=== PATIENT | male | born 1990 | race Caucasian/White ===

== ENCOUNTER 2020-08-25 10:19 | Outpatient (REF) | payer OTHER, SELFPAY ==
[2020-08-25 11:24] LABS: MANUAL DIFF FLAG NO
[2020-08-25 11:40] LABS: Basophils Percent Auto 0.5 % (0-2); Eosinophils Percent Auto 0.5 % (0-4); Hemoglobin 18.5 g/dl (14.0-18.0); Imm Gran Abs Auto 0.03 X10*3/uL (0.00-0.03); Imm Gran Pct Auto 0.4 % (0.0-0.4); Lymphocytes Percent Auto 25.1 % (20-40); Mean Corpuscular HGB Conc 34.9 g/dl (31.0-36.0); Mean Corpuscular Hemoglobin 30.5 pg (27.0-33.0); Mean Corpuscular Volume 87.3 fL (80-98); Mean Platelet Volume 11.3 fL (9.4-12.4); Monocytes Absolute Auto 0.5 X10*3/uL (0.1-1.2); Monocytes Percent Auto 6.3 % (2-11); Neutrophils Absolute Auto 5.2 X10*3/uL (2.0-8.3); Neutrophils Percent Auto 67.2 % (45-73); Platelet Count 212 X10*3/uL (160-400); Red Blood Count 6.07 X10*6/uL (4.60-5.80); Red Cell Distribution Width 11.7 % (11.0-16.0); White Blood Count 7.8 X10*3/uL (4.8-10.8)
[2020-08-25 12:00] LABS: Alanine Aminotransferase 27 U/L (0-40); Albumin Level 4.8 g/dL (3.5-5.0); Alkaline Phosphatase 47 U/L (39-117); Anion Gap 15 (12-20); Aspartate Amino Transferase 20 U/L (5-37); Bilirubin Total 1.1 mg/dL (0.0-1.0); Blood Urea Nitrogen 15 mg/dL (9-16); Calcium 9.8 mg/dL (8.4-10.2); Carbon Dioxide 25 mmol/L (22-29); Chloride 104 mmol/L (96-108); Cholesterol 252 mg/dL; Estimated Glomerular Filt Rate > 60; Glucose Fasting 81 mg/dL (60-99); HDL Cholesterol 47 mg/dL; LDL Cholesterol Calculated 178 mg/dl; Potassium 4.3 mmol/L (3.3-5.1); Sodium 140 mmol/L (135-145); Total Protein 8.1 g/dL (6.5-8.0); Triglycerides 136 mg/dL
[2020-08-25 12:43] LABS: Vitamin B12 413 pg/mL (200-900)
[2020-08-29 15:12] LABS: Vitamin D 25-OH, D2 <4 ng/mL; Vitamin D 25-OH, D3 18 ng/mL; Vitamin D 25-OH, Total 18 ng/mL (30-100)
== END 2020-08-25 10:20 | disposition home or self-care (01) ==
LOC: HO.HMGCLDS 10:19
PROVIDERS: PCP Internal Medicine; Visit Provider Internal Medicine
DX: Z00.01 Encounter for general adult medical examination with abnormal findings (principal); R41.3 Other amnesia; K21.9 Gastro-esophageal reflux disease without esophagitis; H54.3 Unqualified visual loss, both eyes; Z87.820 Personal history of traumatic brain injury; Z91.09 Other allergy status, other than to drugs and biological substances
CPT/HCPCS: 36415; 80053; 80061; 82306; 82607; 84443; 85025

== ENCOUNTER 2020-08-28 09:41 | Outpatient (REF) | payer OTHER, SELFPAY ==
[2020-08-28 11:40] LABS: MANUAL DIFF FLAG NO
[2020-08-28 11:48] LABS: Basophils Absolute Auto 0.1 X10*3/uL (0.0-0.2); Basophils Percent Auto 0.8 % (0-2); Eosinophils Absolute Auto 0.1 X10*3/uL (0.0-0.4); Eosinophils Percent Auto 0.9 % (0-4); Hematocrit 53.1 % (42-52); Hemoglobin 18.1 g/dl (14.0-18.0); Imm Gran Abs Auto 0.03 X10*3/uL (0.00-0.03); Imm Gran Pct Auto 0.5 % (0.0-0.4); Lymphocytes Absolute Auto 2.1 X10*3/uL (1.2-4.9); Lymphocytes Percent Auto 31.7 % (20-40); Mean Corpuscular HGB Conc 34.1 g/dl (31.0-36.0); Mean Corpuscular Hemoglobin 30.3 pg (27.0-33.0); Mean Corpuscular Volume 88.9 fL (80-98); Monocytes Absolute Auto 0.5 X10*3/uL (0.1-1.2); Monocytes Percent Auto 7.8 % (2-11); Neutrophils Absolute Auto 3.8 X10*3/uL (2.0-8.3); Neutrophils Percent Auto 58.3 % (45-73); Platelet Count 248 X10*3/uL (160-400); Red Blood Count 5.97 X10*6/uL (4.60-5.80); Red Cell Distribution Width 11.8 % (11.0-16.0); White Blood Count 6.5 X10*3/uL (4.8-10.8)
[2020-08-28 12:26] LABS: Ferritin 136 ng/mL (20-250)
== END 2020-08-28 09:42 | disposition home or self-care (01) ==
LOC: HO.HMGCLDS 09:41
PROVIDERS: Visit Provider Internal Medicine
DX: R79.89 Other specified abnormal findings of blood chemistry (principal); D58.2 Other hemoglobinopathies; R71.8 Other abnormality of red blood cells
CPT/HCPCS: 36415; 82728; 85025

== ENCOUNTER 2021-08-19 08:53 | Outpatient (REF) | payer OTHER, SELFPAY ==
[2021-08-19 11:23] LABS: MANUAL DIFF FLAG NO
[2021-08-19 11:41] LABS: Basophils Percent Auto 0.5 % (0-2); Eosinophils Percent Auto 0.7 % (0-4); Hematocrit 49.2 % (42.0-52.0); Hemoglobin 16.8 g/dl (14.0-18.0); Imm Gran Abs Auto 0.02 X10*3/uL (0.00-0.03); Imm Gran Pct Auto 0.4 % (0.0-0.4); Lymphocytes Absolute Auto 1.8 X10*3/uL (1.2-4.9); Lymphocytes Percent Auto 31.4 % (20-40); Mean Corpuscular HGB Conc 34.1 g/dl (31.0-36.0); Mean Corpuscular Hemoglobin 30.6 pg (27.0-33.0); Mean Corpuscular Volume 89.6 fL (80.0-98.0); Mean Platelet Volume 11.2 fL (9.4-12.4); Monocytes Absolute Auto 0.4 X10*3/uL (0.1-1.2); Monocytes Percent Auto 7.5 % (2-11); Neutrophils Absolute Auto 3.3 x10*3/uL (2.0-8.3); Neutrophils Percent Auto 59.5 % (45-73); Platelet Count 197 X10*3/uL (160-400); Red Blood Count 5.49 X10*6/uL (4.60-5.80); Red Cell Distribution Width 11.9 % (11.0-16.0); White Blood Count 5.6 X10*3/uL (4.8-10.8)
[2021-08-19 12:20] LABS: Ferritin 132 ng/mL (20-250); TSH reflex Free T4 0.99 uIU/mL (0.32-4.0)
[2021-08-19 12:21] LABS: Alanine Aminotransferase 22 U/L (0-40); Albumin Level 4.7 g/dL (3.5-5.0); Alkaline Phosphatase 39 U/L (39-117); Anion Gap 11 (12-20); Aspartate Amino Transferase 18 U/L (5-37); Blood Urea Nitrogen 11 mg/dL (9-16); Calcium 10.2 mg/dL (8.4-10.2); Carbon Dioxide 30 mmol/L (22-29); Chloride 103 mmol/L (96-108); Cholesterol 258 mg/dL; Estimated Glomerular Filt Rate > 60; Glucose Fasting 90 mg/dL (60-99); HDL Cholesterol 52 mg/dL; LDL Cholesterol Calculated 182 mg/dl; Potassium 4.9 mmol/L (3.3-5.1); Sodium 139 mmol/L (135-145); Total Protein 7.8 g/dL (6.5-8.0); Triglycerides 122 mg/dL
== END 2021-08-19 08:54 | disposition home or self-care (01) ==
LOC: HO.HMGCLDS 08:53
PROVIDERS: Visit Provider Internal Medicine
DX: Z00.01 Encounter for general adult medical examination with abnormal findings (principal); D58.2 Other hemoglobinopathies; H54.3 Unqualified visual loss, both eyes; K21.9 Gastro-esophageal reflux disease without esophagitis; R41.3 Other amnesia; R79.89 Other specified abnormal findings of blood chemistry; Z91.09 Other allergy status, other than to drugs and biological substances; Z87.820 Personal history of traumatic brain injury
CPT/HCPCS: 36415; 80053; 80061; 82728; 84443; 85025

== ENCOUNTER 2021-11-30 12:23 | Outpatient (REF) | payer OTHER, SELFPAY ==
[2021-11-30 14:15] LABS: Alanine Aminotransferase 43 U/L (0-40); Albumin Level 4.8 g/dL (3.5-5.0); Alkaline Phosphatase 39 U/L (39-117); Aspartate Amino Transferase 26 U/L (5-37); Bilirubin Direct 0.3 mg/dL (0.0-0.5); Bilirubin Total 0.6 mg/dL (0.0-1.0); Cholesterol 152 mg/dL; HDL Cholesterol 59 mg/dL; LDL Cholesterol Calculated 77 mg/dl; Total Protein 7.6 g/dL (6.5-8.0); Triglycerides 83 mg/dL
== END 2021-11-30 12:24 | disposition home or self-care (01) ==
LOC: HO.HMGCLDS 12:23
PROVIDERS: Visit Provider Internal Medicine
DX: E78.9 Disorder of lipoprotein metabolism, unspecified (principal)
CPT/HCPCS: 36415; 80061; 80076

== ENCOUNTER 2022-02-17 15:18 | Outpatient (REF) | payer OTHER, SELFPAY ==
[2022-02-17 16:47] LABS: Alanine Aminotransferase 40 U/L (0-40); Albumin Level 4.7 g/dL (3.5-5.0); Alkaline Phosphatase 41 U/L (39-117); Aspartate Amino Transferase 24 U/L (5-37); Bilirubin Direct 0.3 mg/dL (0.0-0.5); Bilirubin Total 0.7 mg/dL (0.0-1.0); Total Protein 7.4 g/dL (6.5-8.0)
== END 2022-02-17 15:19 | disposition home or self-care (01) ==
LOC: HO.HMGCLDS 15:18
PROVIDERS: PCP Internal Medicine; Visit Provider Internal Medicine
DX: E78.9 Disorder of lipoprotein metabolism, unspecified (principal)
CPT/HCPCS: 36415; 80076

== ENCOUNTER 2022-04-20 12:03 | Emergency (ER) | payer OTHER, SELFPAY ==
--- NOTE | ~2022-04-20 | CT_ITS ---
EXAMINATION: CT HEAD WITHOUT CONTRAST CT CERVICAL SPINE WITHOUT CONTRAST CLINICAL INFORMATION: Pain at left forehead. Status post fall. COMPARISON: None. TECHNIQUE: Contiguous axial imaging was performed from the skullbase to vertex without intravenous administration of contrast. Multidetector helical imaging was performed through the cervical spine. This CT examination was performed using dose optimization techniques as appropriate, variously including the following: *Automated exposure control *Adjustment of mA and/or kV according to patient size (this includes techniques or standardized protocols for targeted exams where dose is matched to indication/reason for exam; i.e. extremities or head) *Use of iterative reconstruction technique DLP: 927.5 mGy-cm. FINDINGS: HEAD: The posterior body and splenium of the corpus callosum are attenuated with ex vacuo dilatation and colpocephaly of the occipital horns and trigones of the lateral ventricles bilaterally. Mild prominence of the temporal horns and third ventricle also evident. Significant parenchymal volume loss evident in the occipital lobes as well. There are chronic right-sided cranioplasty changes noted. The patient has also had a previous suboccipital craniectomy with resection of the posterior arch of C1. There is no evidence of acute intracranial hemorrhage or territorial infarction. No abnormal mass effect or midline shift is seen. No extra-axial fluid collections are identified. Suspected small chronic lacunar infarct in the ventral right thalamus. The soft tissues are normal. The mastoid air cells and visualized portions of the paranasal sinuses are fairly well aerated. CERVICAL SPINE: No acute fracture or subluxation is identified in the cervical spine. There is a slight reversal of the normal cervical lordosis. Mild disc space narrowing evident at the C3-C4 and at the C4-C5 levels with a small central disc protrusion at C4-C5. The atlantoaxial articulation is normally maintained. The paraspinal soft tissues are normal. The lung apices are clear. CT/CT cervical spine wo IV con IMPRESSION: 1. No acute intracranial hemorrhage or territorial infarction. Chronic right-sided cranioplasty changes. Colpocephaly of the lateral ventricles with volume loss in the parietal-occipital lobes. Mild ex vacuo dilatation of the ventricles. Suspected small chronic lacunar infarct in the right thalamus. 2. No evidence of acute cervical spine traumatic injury. Chronic postoperative changes and mild mid cervical spondylosis.
--- NOTE | ~2022-04-20 | CT_ITS ---
EXAMINATION: CT CHEST WITHOUT CONTRAST CLINICAL INFORMATION: Left posterior chest pain after fall COMPARISON: Previous chest x-ray July 2019 TECHNIQUE: Multidetector volumetric CT imaging of the chest was done. Axial MIP volume rendering provided. Sagittal and coronal reformatted images were obtained. This CT examination was performed using dose optimization techniques as appropriate, variously including the following: *Automated exposure control *Adjustment of mA and/or kV according to patient size (this includes techniques or standardized protocols for targeted exams where dose is matched to indication/reason for exam; i.e. extremities or head) *Use of iterative reconstruction technique DLP: 529 mGy-cm FINDINGS: BOOK SHELVER: Unremarkable LUNGS: The lungs are clear with no evidence of inflammation or nodules. MEDIASTINUM: The mediastinum is normal. CORONARY ARTERY CALCIFICATION: None visualized on this study. PLEURA: There is no pleural effusion. No pleural mass or thickening. No pneumothorax. AXILLA: Shotty bilateral axillary lymphadenopathy, left greater than right. UPPER ABDOMEN: Unremarkable. OSSEOUS STRUCTURES: Unremarkable. No fracture. CT/CT chest wo IV con IMPRESSION: Unremarkable examination. Fleischner guidelines were followed.
--- NOTE | ~2022-04-20 | XR_ITS ---
EXAMINATION: XR KNEE, LEFT CLINICAL INFORMATION: Left knee COMPARISON: None TECHNIQUE: Four views of the left knee. FINDINGS: No joint effusion, fracture, dislocation, or destructive process. XR/XR knee LT 4V IMPRESSION: Unremarkable study.
--- NOTE | 2022-04-20 12:19 | ED_ITS ---
HPI - General Adult General Chief complaint: Fall <Araceli Moreno MD - Last Filed: 04/20/22 12:29> Stated complaint: Fall T-1/Hit head/Previous TBI/Vomiting <Araceli Moreno MD - Last Filed: 04/20/22 12:29> Time Seen by Provider: 04/20/22 18:16 <Araceli Moreno MD - Last Filed: 04/20/22 12:29> Source: patient and family <NAE Sanchez - Last Filed: 04/20/22 18:42> Mode of arrival: ambulatory <NAE Sanchez - Last Filed: 04/20/22 18:42> History of Present Illness HPI narrative: 31-year-old male with past medical history of GERD, blindness, TBI, CVAs, presenting to the ED c/o mild headache, left elbow, left shoulder and left knee pain, and nausea with 3 episodes of emesis Tuesday night s/p mechanical trip and fall down 13 stairs on Tuesday night. Denies sx prior to fall. Reports unknown LOC, patient states due to his blindness unclear if passed out however does remember brother shaking him. Denies CP/SOB, neck/back pain, abdominal pain, diarrhea, numbness, tingling, weakness, incontinence/retention. Denies taking anticoagulation <NAE Sanchez - Last Filed: 04/20/22 18:42> Onset (ago): day(s) <NAE Sanchez - Last Filed: 04/20/22 18:42> Related Data Home medications: Previous Rx's Medication Instructions Recorded fluticasone propionate 50 1 spray intranasal BID #32 mL 09/25/21 mcg/actuation nasal spray,suspension memantine 5 mg tablet 5 mg PO DAILY 90 days #90 tabs 09/25/21 rosuvastatin 20 mg tablet (Crestor) 20 mg PO DAILY 90 days #90 tabs 10/06/21 omeprazole 20 mg capsule,delayed 20 mg PO DAILY #90 caps 03/26/22 release cetirizine 10 mg tablet 10 mg PO DAILY PRN for allergies 03/30/22 #30 tabs <Araceli Moreno MD - Last Filed: 04/20/22 12:29> Allergies/adverse reactions: Allergies Allergy/AdvReac Type Severity Reaction Status Date / Time amoxicillin [AMOXICILLIN] Allergy Unknown HIVES Verified 02/17/22 15:00 red dye [RED DYE] Allergy Unknown HIVES Verified 02/17/22 15:00 Dye [facility] Red 2 (Amaranth) Allergy Unknown hives Uncoded 08/07/21 13:01 Dye [facility] Red 3 (Erythrosine) Allergy Unknown hives Uncoded 08/07/21 13:01 Dye [facility] Red 40 (Allura Red) Allergy Unknown hives Uncoded 08/07/21 13:01 Dye [facility] Red 40 (Thornwood Red) Allergy Unknown hives Uncoded 08/07/21 13:01 <Araceli Moreno MD - Last Filed: 04/20/22 12:29> Review of Systems Review of Systems: Constitutional: No Fever, No Chills, No Fatigue, No Malaise ENT/Mouth: No Ear Pain, No Nasal Congestion, No sore throat, No Rhinorrhea, No Swallowing Difficulty Eyes: No Eye Pain, No Swelling, No Redness, No Vision Changes Cardiovascular: No Chest Pain, No SOB, No Edema, No Palpitations Respiratory: No Cough, No Sputum, No Dyspnea Gastrointestinal: + Nausea, + Vomiting (resolved), No Abdominal pain Genitourinary: No irregular bleeding, No Dysuria, No Urinary Frequency, No Hematuria, No Urinary Incontinence/retention, No Flank Pain Musculoskeletal: + joint pain, + Myalgias, No Joint Swelling Skin: No Skin Lesions, No rash Neuro: No Weakness, No Numbness, No Paresthesias, Unknown Loss of Consciousness, No Dizziness, + Headache <NAE Sanchez - Last Filed: 04/20/22 18:42> Yes all other systems are reviewed and are negative <NAE Sanchez - Last Filed: 04/20/22 18:42> Constitutional: Constitutional: Reports as per HPI <NAE Sanchez - Last Filed: 04/20/22 18:42> Neurologic: Denies Abnormal speech present <NAE Sanchez - Last Filed: 04/20/22 18:42> [facility] Past Medical History Attestation statement: The following information was validated with the patient. <NAE Sanchez - Last Filed: 04/20/22 18:42> Social History Social History: Social History Housing: House Patient Tobacco Use Status: Never used Tobacco e-Cigarette/Vaping Use: Currently Using (vape) Advance Directives: No Advance Directives Information Provided: No Current occupational status: disabled Cognitive needs: No Hearing needs: No Vision needs: No <Araceli Moreno MD - Last Filed: 04/20/22 12:29> Physical Exam ED Vital Signs: Vital Signs - 24 hr 04/20/22 12:21 Temperature 97.5 F Pulse Rate 85 Respiratory Rate 16 Blood Pressure 137/96 H Pulse Oximetry 96 Oxygen Delivery Method Room Air BMI result Body Mass Index 27.9 <Araceli Moreno MD - Last Filed: 04/20/22 12:29> Vital Signs - 24 hr 04/20/22 12:21 Temperature 97.5 F Pulse Rate 85 Respiratory Rate 16 Blood Pressure 137/96 H Pulse Oximetry 96 Oxygen Delivery Method Room Air BMI result Body Mass Index 27.9 <NAE Sanchez - Last Filed: 04/20/22 18:42> Const General: cooperative, healthy appearing and no acute distress <NAE Sanchez - Last Filed: 04/20/22 18:42> Orientation/consciousness: patient oriented x3 <NAE Sanchez - Last Filed: 04/20/22 18:42> Limitations: no limitations <NAE Sanchez - Last Filed: 04/20/22 18:42> HENMT Head: Yes normal to inspection, Yes atraumatic, No Turner's sign and No raccoon eyes <NAE Sanchez - Last Filed: 04/20/22 18:42> Ears: hearing grossly normal bilaterally <NAE Sanchez Last Filed: 04/20/22 18:42> General nose exam: Normal external nose present <NAE Sanchez Last Filed: 04/20/22 18:42> Face and sinus: Yes normal facial exam <NAE Sanchez Last Filed: 04/20/22 18:42> Throat: Yes posterior oropharynx normal, Yes tonsils normal and Yes uvula midline <NAE Sanchez - Last Filed: 04/20/22 18:42> Eyes General: appearance normal, both eyes and all related structures <Keri Kristophermiguel [place] - Last Filed: 04/20/22 18:42> Pupils: Equal, round and reactive pupils present <NAE Sanchez - Last Filed: 04/20/22 18:42> EOM: EOMs intact bilaterally <Keri Brewster [place] - Last Filed: 04/20/22 18:42> Neck Other: +L trapezius muscle ttp <Keri Brewster [place] - Last Filed: 04/20/22 18:42> Neck: Yes normal visual inspection and Yes no meningeal signs <Keri Brewster [place] - Last Filed: 04/20/22 18:42> Chest Chest palpation & inspection: normal inspection of the chest, no crepitus and no tenderness <Keri Brewster [place] - Last Filed: 04/20/22 18:42> Resp Effort & Inspection: normal respiratory effort and no respiratory distress <Keri Brewster [place] - Last Filed: 04/20/22 18:42> Auscultation: clear to auscultation bilaterally, no crackles, no rales, no rhonchi and no wheezes <Keri Brewster [place] - Last Filed: 04/20/22 18:42> Cardio Rate: regular rate <Keri Brewster [place] - Last Filed: 04/20/22 18:42> Heart sounds: S1 normal heart sound present and S2 normal heart sound present <Keri Brewster [place] - Last Filed: 04/20/22 18:42> GI Inspection: Yes normal to inspection <Keri Brewster [facility] Last Filed: 04/20/22 18:42> Palpation (GI): Soft to palpation, nontender, no guarding and not rigid <Keri Brewster [place] - Last Filed: 04/20/22 18:42> General: Yes no CVA tenderness <Keri Brewster PA - Last Filed: 04/20/22 18:42> Back/Spine/Pelvis Other: No midline thoracic/lumbar spinous tenderness/step-off or deformity. <Keri Brewster PA - Last Filed: 04/20/22 18:42> Back: no CVA tenderness <Keri Maryellent, PA - Last Filed: 04/20/22 18:42> Skin Rashes: no rashes <NAE Sanchez - Last Filed: 04/20/22 18:42> Neuro General: patient oriented x3, gait normal, tone normal, moves all extremities, no meningeal signs and no focal motor deficits <NAE Sanchez - Last Filed: 04/20/22 18:42> Cranial nerves: Yes CN's II-XII intact bilaterally and Yes Equal, round and reactive pupil s present <Keri Brewster PA - Last Filed: 04/20/22 18:42> Cognition (Neuro): normal cognition <Keri Brewster PA - Last Filed: 04/20/22 18:42> Speech: No Abnormal speech present <NAE Sanchez - Last Filed: 04/20/22 18:42> Gait exam (Neuro): Normal gait present <NAE Sanchez - Last Filed: 04/20/22 18:42> Motor exam (neuro): 5/5 motor strength present throughout and Pronator motor function not present <NAE Sanchez - Last Filed: 04/20/22 18:42> Coordination: [id number] test normal <NAE Sanchez - Last Filed: 04/20/22 18:42> Extrem Other: Left knee with small superficial abrasion noted and mild tenderness. Full range of motion intact. Neurovascular intact distally. Left elbow nontender. Full range of motion intact. <NAE Sanchez - Last Filed: 04/20/22 18:42> Course Course Course Narrative: 31M fell down 7 stairs on Tuesday, with head strike, ?LOC, vomiting this morning. C/O pain at left forehead, left elbow, left knee, and left posterior chest.Hx TBI VS Reviewed GEN: NAD HEAD: baseline scars, no contusions, ttp at left forehead NECK: supple, no midline ttp or step-offs CHEST WALL: no crepitus or deformity and ttp at leftmedial border of chest wall, scapula EXT: fROM at b/l shoulders, elbows, wrists but ttp at left elbow; fROM at b/l hips/knees/ankles with ttp at left knee LUNGS: CTAB CVS: RRR ABD: NT/ND PELVIS: stable <Araceli Moreno MD - Last Filed: 04/20/22 12:29> 31M fell down 7 stairs on Tuesday, with head strike, ?LOC, vomiting this morning. C/O pain at left forehead, left elbow, left knee, and left posterior chest.Hx TBI VS Reviewed GEN: NAD HEAD: baseline scars, no contusions, ttp at left forehead NECK: supple, no midline ttp or step-offs CHEST WALL: no crepitus or deformity and ttp at leftmedial border of chest wall, scapula EXT: fROM at b/l shoulders, elbows, wrists but ttp at left elbow; fROM at b/l hips/knees/ankles with ttp at left knee LUNGS: CTAB CVS: RRR ABD: NT/ND PELVIS: stable 1840--CT head/brain wo IV con/CT cervical spine wo IV con IMPRESSION: 1. No acute intracranial hemorrhage or territorial infarction. Chronic right-sided cranioplasty changes. Colpocephaly of the lateral ventricles with volume loss in the parietal-occipital lobes. Mild ex vacuo dilatation of the ventricles. Suspected small chronic lacunar infarct in the right thalamus. ? 2. No evidence of acute cervical spine traumatic injury. Chronic postoperative changes and mild mid cervical spondylosis. CT chest wo IV con IMPRESSION: Unremarkable examination.? Fleischner guidelines were followed. CT chest wo IV con IMPRESSION: Unremarkable examination.? Fleischner guidelines were followed. Results discussed with patient including worrisome signs and symptoms and strict return precautions, and when to return to the emergency department. They verbalized understanding and feel safe for discharge at this time. <NAE Sanchez - Last Filed: 04/20/22 18:42> Medical Decision Making Medical Decision Making MDM Narrative: 31-year-old male with past medical history of GERD, blindness, TBI, CVAs, presenting to the ED c/o mild headache, left elbow, left shoulder and left knee pain, and nausea with 3 episodes of emesis Tuesday night s/p mechanical trip and fall down 13 stairs on Tuesday night. On exam vital signs stable, NAD, nontoxic appearing, physical exam as above, no midline spinous tenderness or or red flag symptoms, no focal neuro deficits. Concern for ICH vs fracture vs concussion. Low suspicion for metabolic/infectious etiologies or intra-abdominal/int rathoracic bleeding Plan: Head/C-spine/chest CT, x-rays <NAE Sanchez - Last Filed: 04/20/22 18:42> Differential Diagnoses: Differential diagnosis Differential Diagnosis: The differential diagnosis associated with the patient?s presentation includes: As above <NAE Sanchez - Last Filed: 04/20/22 18:42> Independent historian (e.g., spouse, EMS, friend): Independent historian (e.g., spouse, EMS, friend) Clinical information obt ained from an independent historian. History obtained from or confirmed by: Parent <NAE Sanchez - Last Filed: 04/20/22 18:42> Non-ED record review: Review of External (Non-ED) Record External record reviewed:: Inpatient record, Office record, Outpatient record and Prior outpatient labs <NAE Sanchez - Last Filed: 04/20/22 18:42> Tests considered but not performed: Tests Considered But Not Performed (Labs) The following testing was considered but ultimately not selected after discussion with patient/family. <NAE Sanchez - Last Filed: 04/20/22 18:42> Discharge Plan Discharge Clinical Impression: Head injury, Fall <Araceli Moreno MD - Last Filed: 04/20/22 12:29> Patient Disposition: Home, Self-Care <Araceli Moreno MD - Last Filed: 04/20/22 12:29> Instructions: Head Injury (ED), Fall Prevention (ED) <Araceli Moreno MD - Last Filed: 04/20/22 12:29> Additional Instructions: your imaging does not show any acute findings. He likely have a concussion. Please have close follow-up with her doctor. Take Tylenol and Motrin as needed for pain. If symptoms persist or worsen, he developed persistent headache, persistent nausea/vomiting or weakness return to the emergency department <Araceli Moreno MD - Last Filed: 04/20/22 12:29> Prescriptions: No Action memantine 5 mg tablet 5 mg PO DAILY 90 Days Qty: 90 1RF fluticasone propionate 50 mcg/actuation spray,suspension 1 spray intranasal BID Qty: 32 3RF rosuvastatin [Crestor] 20 mg tablet 20 mg PO DAILY 90 Days Qty: 90 0RF omeprazole 20 mg capsule,delayed release(DR/EC) 20 mg PO DAILY Qty: 90 0RF cetirizine 10 mg tablet 10 mg PO DAILY PRN (Reason: for allergies) Qty: 30 4RF <Araceli Moreno MD - Last Filed: 04/20/22 12:29> Referrals: Elizabeth Guzman MD [Primary Care Provider] - 3 days <Araceli Moreno MD - Last Filed: 04/20/22 12:29>
[2022-04-20 12:21] VITALS: BP 137/96; PULSE 85; RESP 16; TEMP 36.4; O2SAT 96; BMI 27.9
[2022-04-20 13:33] LABS: Influenza A PCR NEGATIVE (Negative); Influenza B PCR NEGATIVE (Negative); Resp Syncy Virus RNA Qual PCR NEGATIVE (Negative); SARS COV2 PCR INHOUSE NEGATIVE (Negative)
[2022-04-20 18:44] VITALS: BP 132/86; PULSE 69; RESP 18; TEMP 36.3; O2SAT 98
== END 2022-04-20 18:55 | disposition home or self-care (01) ==
PROVIDERS: Emergency Provider Student in an Organized Health Care Education/Training Program; PCP Internal Medicine
DX: S00.91XA Abrasion of unspecified part of head, initial encounter (principal); S40.012A Contusion of left shoulder, initial encounter; R51.9 Headache, unspecified; M25.522 Pain in left elbow; M25.512 Pain in left shoulder; M25.562 Pain in left knee; R11.2 Nausea with vomiting, unspecified; R07.89 Other chest pain; M54.6 Pain in thoracic spine; M54.2 Cervicalgia; W10.9XXA Fall (on) (from) unspecified stairs and steps, initial encounter; Y93.9 Activity, unspecified; Y92.9 Unspecified place or not applicable; Y99.9 Unspecified external cause status; Z20.822 Contact with and (suspected) exposure to COVID-19; Z79.899 Other long term (current) drug therapy
CPT/HCPCS: 0241U; 70450; 71250; 72125; 73564; 99283; 99284

== ENCOUNTER 2023-03-16 15:05 | Outpatient (AMB) | payer OTHER, SELFPAY ==
[2023-03-16 15:07] VITALS: BP 126/88; PULSE 58; O2SAT 98; BMI 27.0
--- NOTE | 2023-03-16 15:07 | MHC.PC.OV ---
Vital Signs 03/16/23 15:07 Height 5 ft 10 in Weight 188 lb 6 oz BMI 27.0 BP 126/88 Blood Pressure Location Rt brachial Position Sitting Pulse 58 Pulse Source Pulse Oximeter Pulse Oximetry (%) 98 Oxygen Delivery Method Room Air Intake Visit Reasons: Follow Up~ Allergies amoxicillin [AMOXICILLIN] Allergy (Unknown, Verified 03/16/23 15:08) HIVES red dye [RED DYE] Allergy (Unknown, Verified 03/16/23 15:08) HIVES Dye CORRECTION Red 2 (Amaranth) Allergy (Unknown, Uncoded 07/09/22 15:06) hives Dye CORRECTION Red 3 (Erythrosine) Allergy (Unknown, Uncoded 07/09/22 15:06) hives Dye CORRECTION Red 40 (Allura Red) Allergy (Unknown, Uncoded 07/09/22 15:06) hives Dye CORRECTION Red 40 ([place] Red) Allergy (Unknown, Uncoded 07/09/22 15:06) hives Medication List - Last Reconciled 03/16/23 by Elizabeth Guzman MD cetirizine 10 mg PO DAILY PRN fluticasone propionate 50 mcg/actuation 1 spray intranasal BID memantine 5 mg PO DAILY 90 days omeprazole 20 mg PO DAILY rosuvastatin (Crestor) 20 mg PO DAILY 90 days Tobacco use date assessed: 03/16/23 Dental Screening Dental Screen Date: 03/16/23 Did you have a dental visit in the last 12 months?: No Did you have a dental problem in the last 6 months where you did not have access to dental care?: No Was dental information given to patient?: Patient has dentist HPI Follow Up~ HPI Details Patient is 32-year-old male who is blind came in today for his 6 month follow-up appointment Patient was supposed to have labs done before this visit but he forgot Reminded again , patient is to have labs every time he comes and sees me every 6 months. 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 Allergies are controlled with Flonase nasal spray and Zyrtec 10 mg daily. Follow-up 6 months [facility] Social History Housing: House Patient Tobacco Use Status: Never used Tobacco e-Cigarette/Vaping Use: Currently Using (vape) Current occupational status: disabled Cognitive needs: No Hearing needs: No Vision needs: No Questionnaire PHQ-9 Over the last 2 weeks, how often have you been bothered by any of the following problems? 1. Little interest or pleasure in doing things: not at all 2. Feeling down, depressed, or hopeless: not at all 3. Trouble falling or staying asleep, or sleeping too much: not at all 4. Feeling tired or having little energy: not at all 5. Poor appetite or overeating: not at all 6. Feeling bad about yourself - or that you are a failure or have let yourself or your family down: not at all 7. Trouble concentrating on things, such as reading the newspaper or watching television: not at all 8. Moving or speaking so slowly that other people could have noticed. Or the opposite - being so fidgety or restless that you have been moving around a lot more than usual: not at all 9. Thoughts that you would be better off or of hurting yourself in some way: not at all Total score: 0 Depression Screening Interpretation: Negative Depression Screening Done: Yes 42032 - PHQ-9 Billing: Yes Source: Developed by Drs. González Main, Evelyn Aburto, Kamran Gregory and colleagues, with an educational roberto from [employer]. Thrive Questionnaire Date Thrive assessed: 03/16/23 I am a: Patient What is your living situation today?: I have a steady place to live Within the past 12 months, did the food you bought not last and you didn't have the money to get more?: Never true Within the past 12 months, did you worry whether your food would run out before you got money to buy more?: Never true Do you have trouble paying for medicines?: No Do you have trouble getting transportation to medical appointments?: No Do you have trouble paying your heating and electricity bill?: No Do you have trouble taking care of your child, family member or friend?: No Do you have trouble with day-to-day activities such as bathing, preparing meals, shopping, managing finances, etc.?: No Are you currently unemployed and looking for a job?: No Are you interested in more education?: No Please select the resources that you would like help with: None Currently or been in a relationship where the following occur: no concerns reported AUDIT C Alcohol Use Questionnaire (AUDIT-C) 1. How often do you have a drink containing alcohol?: Never 3. How often do you have six or more drinks on one occasion?: Never Total Score: 0 Score Reviewed/Action Taken: Yes SARAH-7 AMB Questionnaire SARAH-7 Date SARAH - 7 assessed: 03/16/23 Feeling nervous, anxious, or on edge: 0 = Not at all Not being able to stop or control worryin = Not at all Worrying too much about different things: 0 = Not at all Trouble relaxin = Not at all Being so restless that it is hard to sit still: 0 = Not at all Becoming easily annoyed or irritable: 0 = Not at all Feeling afraid as if something awful might happen: 0 = Not at all Total SARAH-7 score (0-4 normal; 5-9 mild; 10-14 moderate; 15-21 severe): 0 Source: Developed by Drs. González Main, Evelyn Aburto, Kamran Gregory and colleagues, with an educational roberto from [employer]. SARAH-7 Assessment Billing SARAH-7 Assessment Tool: SARAH-7 Assessment 73711 Review of Systems Const Denies chills and Denies fever(s) ENT Denies epistaxis and Denies nasal discharge Card Denies chest pain Resp Denies chest congestion, Denies cough and Denies hemoptysis GI Denies diarrhea and Denies nausea Skin/Breast Denies rash Neuro Reports no additional complaints Psych Reports no additional complaints Endo Reports no additional complaints Physical exam (Primary Care) Vital Signs: Last Vital Signs Pulse 58 03/16/23 15:07 BP 126/88 03/16/23 15:07 Pulse Ox 98 03/16/23 15:07 Oxygen Delivery Method Room Air 03/16/23 15:07 BMI result Body Mass Index 27.0 Tobacco/Smoking Status: Tobacco use Status Tobacco use date assessed 03/16/23 03/16/23 15:08 Patient Tobacco Use Status Never used Tobacco 03/16/23 15:08 e-Cigarette/Vaping Use Currently Using (vape) 03/16/23 15:08 Depression Screening Interpretation: Negative Thrive Assessment: Date of Thrive Assessment Date Thrive assessed 07/09/22 03/16/23 15:08 Currently or been in a relationship where the following occur: no concerns reported Const General: cooperative, comfortable and no acute distress Orientation/consciousness: patient oriented x3 HENMT Head: Yes normocephalic Neck Neck: Yes supple Resp Effort & Inspection: normal respiratory effort, no cough and no stridor Cardio Rhythm: regular rhythm Heart sounds: S1 normal heart sound present and S2 normal heart sound present Skin General skin exam: turgor normal Neuro General: patient oriented x3, tone normal and moves all extremities Extrem Right lower extremity: no edema Left lower extremity: no edema Office Procedures Flu Questionnaire Does the patient have a severe egg allergy?: No Does the patient have severe life threatening allergies?: No Does the patient have a fever or illness today?: No Has the patient ever had Guillain-[place] Syndrome?: No Has the patient ever had any past reaction to a flu shot?: No Immunizations flu vacc [id number] 6mos up(PF) 60 mcg(15 mcgx4)/0.5 mL IM syringe Performing Provider: Elizabeth Guzman MD Performing Location: [facility] Administered by: Demetrius Prado CMA on 03/16/23 15:24 Dose Route Admin Location Dispensed Lot Number Expiration Date NDC [employer] 0.5 mL IM Left Deltoid 0.5 mL [id number] 11/13/23 [id number] [employer] VIS Given Date VIS Provided VIS Publication Date 03/16/23 Single Vaccine 20 Eligibility Eligibility Date Funding Source Not [facility] Eligible 03/16/23 Private Assessment and Plan Assessment & Plan (1) Lipid disorder: Code(s): E78.9 - Disorder of lipoprotein metabolism, unspecified (2) Elevated ferritin, hemoglobin, and red blood cell count: Code(s): R79.89 - Other specified abnormal findings of blood chemistry; D58.2 - Other hemoglobinopathies; R71.8 - Other abnormality of red blood cells (3) Memory deficit: Code(s): R41.3 - Other amnesia (4) Chronic GERD: Code(s): K21.9 - Gastro-esophageal reflux disease without esophagitis (5) Environmental allergies: Code(s): Z91.09 - Other allergy status, other than to drugs and biological substances (6) Blind in both eyes: Code(s): H54.3 - Unqualified visual loss, both eyes (7) History of traumatic brain injury: Code(s): Z87.820 - Personal history of traumatic brain injury Plan Patient is 32-year-old male who is blind came in today for his 6 month follow-up appointment Patient was supposed to have labs done before this visit but he forgot Reminded again , patient is to have labs every time he comes and sees me every 6 months. 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 Allergies are controlled with Flonase nasal spray and Zyrtec 10 mg daily. Follow-up 6 months Orders: Orders Influenza [id number] Immunization Today Z23 - Encounter for immunization Lipid Panel Today D58.2 - Other hemoglobinopathies, E78.9 - Disorder of lipoprotein metabolism, unspecified, H54.3 - Unqualified visual loss, both eyes, K21.9 - Gastro-esophageal reflux disease without esophagitis, R41.3 - Other amnesia, R71.8 - Other abnormality of red blood cells, R79.89 - Other specified abnormal findings of blood chemistry, Z91.09 - Other allergy status, other than to drugs and biological substances Vitamin D 25-OH (D2 and D3) Today D58.2 - Other hemoglobinopathies, E78.9 - Disorder of lipoprotein metabolism, unspecified, H54.3 - Unqualified visual loss, both eyes, K21.9 - Gastro-esophageal reflux disease without esophagitis, R41.3 - Other amnesia, R71.8 - Other abnormality of red blood cells, R79.89 - Other specified abnormal findings of blood chemistry, Z91.09 - Other allergy status, other than to drugs and biological substances Complete Blood Count Auto Diff 6 Months E78.9 - Disorder of lipoprotein metabolism, unspecified, K21.9 - Gastro-esophageal reflux disease without esophagitis, Z91.09 - Other allergy status, other than to drugs and biological substances Comprehensive [place]. Panel Fast 6 Months E78.9 - Disorder of lipoprotein metabolism, unspecified, K21.9 - Gastro-esophageal reflux disease without esophagitis, Z91.09 - Other allergy status, other than to drugs and biological substances Complete Blood Count Auto Diff Today D58.2 - Other hemoglobinopathies, E78.9 - Disorder of lipoprotein metabolism, unspecified, H54.3 - Unqualified visual loss, both eyes, K21.9 - Gastro-esophageal reflux disease without esophagitis, R41.3 - Other amnesia, R71.8 - Other abnormality of red blood cells, R79.89 - Other specified abnormal findings of blood chemistry, Z91.09 - Other allergy status, other than to drugs and biological substances Comprehensive [place]. Panel Fast Today D58.2 - Other hemoglobinopathies, E78.9 - Disorder of lipoprotein metabolism, unspecified, H54.3 - Unqualified visual loss, both eyes, K21.9 - Gastro-esophageal reflux disease without esophagitis, R41.3 - Other amnesia, R71.8 - Other abnormality of red blood cells, R79.89 - Other specified abnormal findings of blood chemistry, Z91.09 - Other allergy status, other than to drugs and biological substances Vitamin B12 Today D58.2 - Other hemoglobinopathies, E78.9 - Disorder of lipoprotein metabolism, unspecified, H54.3 - Unqualified visual loss, both eyes, K21.9 - Gastro-esophageal reflux disease without esophagitis, R41.3 - Other amnesia, R71.8 - Other abnormality of red blood cells, R79.89 - Other specified abnormal findings of blood chemistry, Z91.09 - Other allergy status, other than to drugs and biological substances Lipid Panel 6 Months E78.9 - Disorder of lipoprotein metabolism, unspecified, K21.9 - Gastro-esophageal reflux disease without esophagitis, Z91.09 - Other allergy status, other than to drugs and biological substances Coding Level of Care Code Est Pt Level 4 (83352) Diagnoses Lipid disorder E78.9 Elevated ferritin, hemoglobin, and red blood cell count R79.89; D58.2; R71.8 Memory deficit R41.3 Chronic GERD K21.9 Environmental allergies Z91.09 Blind in both eyes H54.3 History of traumatic brain injury Z87.820 Additional Codes SARAH-7 Assessment Billing - SARAH-7 Assessment Tool: SARAH-7 Assessment [id number] ([id number])
== END 2023-03-16 16:28 | disposition home or self-care (01) ==
PROVIDERS: PCP Internal Medicine; Visit Provider Internal Medicine
DX: E78.9 Disorder of lipoprotein metabolism, unspecified (principal); R79.89 Other specified abnormal findings of blood chemistry; D58.2 Other hemoglobinopathies; R41.3 Other amnesia; K21.9 Gastro-esophageal reflux disease without esophagitis; Z91.09 Other allergy status, other than to drugs and biological substances; H54.3 Unqualified visual loss, both eyes; Z87.820 Personal history of traumatic brain injury; Z23 Encounter for immunization
CPT/HCPCS: 90471; 90686; 99214

== ENCOUNTER 2023-04-25 10:48 | Outpatient (REF) | payer OTHER, SELFPAY ==
[2023-04-25 13:17] LABS: MANUAL DIFF FLAG NO
[2023-04-25 13:39] LABS: Basophils Absolute Auto 0.1 X10*3/uL (0.0-0.2); Basophils Percent Auto 0.6 % (0-2); Eosinophils Absolute Auto 0.1 X10*3/uL (0.0-0.4); Hematocrit 47.1 % (42.0-52.0); Hemoglobin 15.7 g/dl (14.0-18.0); Imm Gran Abs Auto 0.03 X10*3/uL (0.00-0.03); Imm Gran Pct Auto 0.4 % (0.0-0.4); Lymphocytes Absolute Auto 2.2 X10*3/uL (1.2-4.9); Lymphocytes Percent Auto 27.6 % (20-40); Mean Corpuscular HGB Conc 33.3 g/dl (31.0-36.0); Mean Corpuscular Hemoglobin 29.4 pg (27.0-33.0); Mean Corpuscular Volume 88.2 fL (80.0-98.0); Mean Platelet Volume 11.2 fL (9.4-12.4); Monocytes Absolute Auto 0.4 X10*3/uL (0.1-1.2); Monocytes Percent Auto 5.2 % (2-11); Neutrophils Absolute Auto 5.1 x10*3/uL (2.0-8.3); Neutrophils Percent Auto 65.2 % (45-73); Platelet Count 230 X10*3/uL (160-400); Red Blood Count 5.34 X10*6/uL (4.60-5.80); Red Cell Distribution Width 11.8 % (11.0-16.0); White Blood Count 7.8 X10*3/uL (4.8-10.8)
[2023-04-25 14:09] LABS: Alanine Aminotransferase 39 U/L (0-40); Albumin Level 4.6 g/dL (3.5-5.0); Alkaline Phosphatase 42 U/L (39-117); Anion Gap 13 (12-20); Aspartate Amino Transferase 25 U/L (5-37); Bilirubin Total 0.6 mg/dL (0.0-1.0); Blood Urea Nitrogen 11 mg/dL (9-16); Calcium 10.1 mg/dL (8.4-10.2); Carbon Dioxide 29 mmol/L (22-29); Chloride 106 mmol/L (96-108); Cholesterol 168 mg/dL (<200); Estimated Glomerular Filt Rate > 60; Glucose Fasting 84 mg/dL (60-99); HDL Cholesterol 67 mg/dL (>40); LDL Cholesterol Calculated 86 mg/dL (<100); Potassium 4.2 mmol/L (3.3-5.1); Sodium 144 mmol/L (135-145); Total Protein 7.8 g/dL (6.5-8.0); Triglycerides 77 mg/dL (<150)
[2023-04-25 14:23] LABS: Vitamin B12 396 pg/mL (200-900)
[2023-04-29 14:03] LABS: Vitamin D 25-OH, D2 <4 ng/mL; Vitamin D 25-OH, D3 19 ng/mL; Vitamin D 25-OH, Total 19 ng/mL (30-100)
== END 2023-04-25 10:49 | disposition home or self-care (01) ==
LOC: HO.HMGCLDS 10:48
PROVIDERS: PCP Internal Medicine; Visit Provider Internal Medicine
DX: E78.9 Disorder of lipoprotein metabolism, unspecified (principal); R79.89 Other specified abnormal findings of blood chemistry; D58.2 Other hemoglobinopathies; R41.3 Other amnesia; K21.9 Gastro-esophageal reflux disease without esophagitis; Z91.09 Other allergy status, other than to drugs and biological substances; H54.3 Unqualified visual loss, both eyes
CPT/HCPCS: 36415; 80053; 80061; 82306; 82607; 85025

== ENCOUNTER 2023-09-12 09:39 | Outpatient (REF) | payer OTHER, SELFPAY ==
[2023-09-12 13:17] LABS: MANUAL DIFF FLAG NO
[2023-09-12 13:29] LABS: Basophils Percent Auto 0.6 % (0-2); Eosinophils Absolute Auto 0.1 X10*3/uL (0.0-0.4); Eosinophils Percent Auto 1.5 % (0-4); Hematocrit 45.8 % (42.0-52.0); Hemoglobin 15.4 g/dl (14.0-18.0); Imm Gran Abs Auto 0.02 X10*3/uL (0.00-0.03); Imm Gran Pct Auto 0.3 % (0.0-0.4); Lymphocytes Absolute Auto 2.1 X10*3/uL (1.2-4.9); Lymphocytes Percent Auto 32.3 % (20-40); Mean Corpuscular HGB Conc 33.6 g/dl (31.0-36.0); Mean Corpuscular Hemoglobin 29.7 pg (27.0-33.0); Mean Corpuscular Volume 88.2 fL (80.0-98.0); Mean Platelet Volume 11.4 fL (9.4-12.4); Monocytes Absolute Auto 0.4 X10*3/uL (0.1-1.2); Monocytes Percent Auto 6.6 % (2-11); Neutrophils Absolute Auto 3.8 x10*3/uL (2.0-8.3); Neutrophils Percent Auto 58.7 % (45-73); Platelet Count 225 X10*3/uL (160-400); Red Blood Count 5.19 X10*6/uL (4.60-5.80); Red Cell Distribution Width 11.7 % (11.0-16.0); White Blood Count 6.5 X10*3/uL (4.8-10.8)
[2023-09-12 13:49] LABS: Alanine Aminotransferase 32 U/L (0-40); Albumin Level 4.6 g/dL (3.5-5.0); Alkaline Phosphatase 40 U/L (39-117); Anion Gap 9 (12-20); Aspartate Amino Transferase 20 U/L (5-37); Bilirubin Total 0.6 mg/dL (0.0-1.0); Blood Urea Nitrogen 12 mg/dL (9-16); Carbon Dioxide 33 mmol/L (22-29); Chloride 103 mmol/L (96-108); Cholesterol 134 mg/dL (<200); Estimated Glomerular Filt Rate > 60; Glucose Fasting 87 mg/dL (60-99); HDL Cholesterol 43 mg/dL (>40); LDL Cholesterol Calculated 71 mg/dL (<100); Potassium 4.4 mmol/L (3.3-5.1); Sodium 141 mmol/L (135-145); Total Protein 7.7 g/dL (6.5-8.0); Triglycerides 102 mg/dL (<150)
== END 2023-09-12 09:40 | disposition home or self-care (01) ==
LOC: HO.HMGCLDS 09:39
PROVIDERS: PCP Internal Medicine; Visit Provider Internal Medicine
DX: E78.9 Disorder of lipoprotein metabolism, unspecified (principal); K21.9 Gastro-esophageal reflux disease without esophagitis; Z91.09 Other allergy status, other than to drugs and biological substances
CPT/HCPCS: 36415; 80053; 80061; 85025

== ENCOUNTER 2023-09-20 12:56 | Outpatient (AMB) | payer OTHER, SELFPAY ==
[2023-09-20 13:02] VITALS: BP 126/84; PULSE 65; O2SAT 97; BMI 27.3
--- NOTE | 2023-09-20 13:02 | MHC.PC.OV ---
Vital Signs 09/20/23 13:02 Height 5 ft 10 in Weight 190 lb 8 oz BMI 27.3 BP 126/84 Blood Pressure Location Rt brachial Position Sitting Pulse 65 Pulse Source Pulse Oximeter Pulse Oximetry (%) 97 Oxygen Delivery Method Room Air Intake Visit Reasons: annual PE overdue Allergies amoxicillin [AMOXICILLIN] Allergy (Unknown, Verified 09/20/23 13:04) HIVES red dye [RED DYE] Allergy (Unknown, Verified 09/20/23 13:04) HIVES Dye GROUP HOME Red 2 (Amaranth) Allergy (Unknown, Uncoded 07/09/22 15:06) hives Dye GROUP HOME Red 3 (Erythrosine) Allergy (Unknown, Uncoded 07/09/22 15:06) hives Dye GROUP HOME Red 40 (Allura Red) Allergy (Unknown, Uncoded 07/09/22 15:06) hives Dye GROUP HOME Red 40 ([place] Red) Allergy (Unknown, Uncoded 07/09/22 15:06) hives Medication List - Last Reconciled 09/20/23 by Elizabeth Guzman MD cetirizine 10 mg PO DAILY PRN fluticasone propionate 50 mcg/actuation 1 spray intranasal BID memantine 5 mg PO DAILY 90 days omeprazole 20 mg PO DAILY rosuvastatin (Crestor) 20 mg PO DAILY 90 days Tobacco use date assessed: 09/20/23 Dental Screening Dental Screen Date: 09/20/23 Did you have a dental visit in the last 12 months?: No Did you have a dental problem in the last 6 months where you did not have access to dental care?: No Was dental information given to patient?: Patient has dentist HPI annual PE overdue HPI Details Patient is 33-year-old male who is blind came in today for his physical exam with his father Labs done recently reviewed Patient disorder rosuvastatin 20 mg, tolerating medication no side effects LDL is well-controlled Patient is doing well and offered no complaints Taking memantine for memory problem, 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 Allergies are controlled with Flonase nasal spray and Zyrtec 10 mg daily. Follow-up 6 months [facility] Social History Housing: House Patient Tobacco Use Status: Never used Tobacco e-Cigarette/Vaping Use: Currently Using (vape) Current occupational status: disabled Cognitive needs: No Hearing needs: No Vision needs: No Questionnaire PHQ-9 Over the last 2 weeks, how often have you been bothered by any of the following problems? 1. Little interest or pleasure in doing things: not at all 2. Feeling down, depressed, or hopeless: not at all 3. Trouble falling or staying asleep, or sleeping too much: not at all 4. Feeling tired or having little energy: not at all 5. Poor appetite or overeating: not at all 6. Feeling bad about yourself - or that you are a failure or have let yourself or your family down: not at all 7. Trouble concentrating on things, such as reading the newspaper or watching television: not at all 8. Moving or speaking so slowly that other people could have noticed. Or the opposite - being so fidgety or restless that you have been moving around a lot more than usual: not at all 9. Thoughts that you would be better off or of hurting yourself in some way: not at all Total score: 0 Depression Screening Interpretation: Negative Depression Screening Done: Yes 05599 - PHQ-9 Billing: Yes Source: Developed by Drs. González Main, Evelyn Aburto, Kamran Gregory and colleagues, with an educational roberto from [employer]. Thrive Questionnaire Date Thrive assessed: 09/20/23 I am a: Patient What is your living situation today?: I have a steady place to live Within the past 12 months, did the food you bought not last and you didn't have the money to get more?: Never true Within the past 12 months, did you worry whether your food would run out before you got money to buy more?: Never true Do you have trouble paying for medicines?: No Do you have trouble getting transportation to medical appointments?: No Do you have trouble paying your heating and electricity bill?: No Do you have trouble taking care of your child, family member or friend?: No Do you have trouble with day-to-day activities such as bathing, preparing meals, shopping, managing finances, etc.?: Yes Are you currently unemployed and looking for a job?: No Are you interested in more education?: No Please select the resources that you would like help with: None Currently or been in a relationship where the following occur: no concerns reported THRIVE Score: 0 AUDIT C Alcohol Use Questionnaire (AUDIT-C) 1. How often do you have a drink containing alcohol?: Never 3. How often do you have six or more drinks on one occasion?: Never Total Score: 0 Score Reviewed/Action Taken: Yes SARAH-7 AMB Questionnaire SARAH-7 Date SARAH - 7 assessed: 09/20/23 Feeling nervous, anxious, or on edge: 0 = Not at all Not being able to stop or control worryin = Not at all Worrying too much about different things: 0 = Not at all Trouble relaxin = Not at all Being so restless that it is hard to sit still: 0 = Not at all Becoming easily annoyed or irritable: 0 = Not at all Feeling afraid as if something awful might happen: 0 = Not at all Total SARAH-7 score (0-4 normal; 5-9 mild; 10-14 moderate; 15-21 severe): 0 Source: Developed by Drs. González Main, Evelyn Aburto, Kamran Gregory and colleagues, with an educational roberto from [employer]. SARAH-7 Assessment Billing SARAH-7 Assessment Tool: SARAH-7 Assessment 71122 Review of Systems Const Denies chills, Denies fever(s) and Denies headache(s) ENT Denies headache(s), Denies nasal discharge, Denies nasal obstruction, Denies odynophagia and Denies sinus pain Card Denies chest pain at rest and Denies chest pain with activity Resp Denies cough and Denies hemoptysis GI Denies diarrhea, Denies odynophagia, Denies vomiting and Denies hematemesis Reports as per HPI Musc Denies abnormal gait Skin/Breast Reports as per HPI Neuro Denies Neuro-related abnormal movements, Denies Abnormal speech present, Denies abnormal gait, Denies headache(s) and Denies Sensory deficit (Neuro) Psych Denies mood swings and Denies paranoia Endo Reports as per HPI Rito/Lymph Reports as per HPI Aller/Immun Reports as per HPI Physical exam (Primary Care) Vital Signs: Last Vital Signs Pulse 65 09/20/23 13:02 BP 126/84 09/20/23 13:02 Pulse Ox 97 09/20/23 13:02 Oxygen Delivery Method Room Air 09/20/23 13:02 BMI result Body Mass Index 27.3 Tobacco/Smoking Status: Tobacco use Status Tobacco use date assessed 09/20/23 09/20/23 13:04 Patient Tobacco Use Status Never used Tobacco 09/20/23 13:04 e-Cigarette/Vaping Use Currently Using (vape) 09/20/23 13:04 PHQ-9: PHQ-9 Score PHQ-9: Total score 0 09/20/23 13:20 Depression Screening Interpretation: Negative Thrive Assessment: Date of Thrive Assessment Date Thrive assessed 09/20/23 09/20/23 13:20 Currently or been in a relationship where the following occur: no concerns reported Const General: cooperative, comfortable and no acute distress Orientation/consciousness: patient oriented x3 HENMT Head: Yes normocephalic and Yes atraumatic Neck Neck: Yes supple and No lymphadenopathy Thyroid: Thyroid normal Lymphatic: no lymphadenopathy noted Resp Effort & Inspection: normal respiratory effort and able to speak in complete sentences Auscultation: clear to auscultation bilaterally Cardio Heart sounds: S1 normal heart sound present and S2 normal heart sound present GI Palpation (GI): Soft to palpation and nontender Auscultation: normal bowel sounds General: Yes no CVA tenderness Back/Spine/Pelvis Back: no CVA tenderness Skin General skin exam: elasticity normal and turgor normal Neuro General: patient oriented x3 and gait normal Speech: No Abnormal speech present Sensory Exam: No Sensory deficit (Neuro) Extrem General: Yes normal exam except as noted and No edema Assessment and Plan Assessment & Plan (1) Encounter for general adult medical examination with abnormal findings: Code(s): Z00.01 - Encounter for general adult medical examination with abnormal findings (2) Lipid disorder: Code(s): E78.9 - Disorder of lipoprotein metabolism, unspecified (3) Chronic GERD: Code(s): K21.9 - Gastro-esophageal reflux disease without esophagitis (4) Environmental allergies: Code(s): Z91.09 - Other allergy status, other than to drugs and biological substances (5) Blind in both eyes: Code(s): H54.3 - Unqualified visual loss, both eyes (6) Memory deficit: Code(s): R41.3 - Other amnesia (7) History of traumatic brain injury: Code(s): Z87.820 - Personal history of traumatic brain injury Plan Patient is 33-year-old male who is blind came in today for his physical exam with his father Labs done recently reviewed Patient disorder rosuvastatin 20 mg, tolerating medication no side effects LDL is well-controlled Patient is doing well and offered no complaints Taking memantine for memory problem, 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 Allergies are controlled with Flonase nasal spray and Zyrtec 10 mg daily. Follow-up 6 months Orders: Orders Complete Blood Count Auto Diff 5 Months E78.9 - Disorder of lipoprotein metabolism, unspecified, H54.3 - Unqualified visual loss, both eyes, K21.9 - Gastro-esophageal reflux disease without esophagitis, Z00.01 - Encounter for general adult medical examination with abnormal findings, Z91.09 - Other allergy status, other than to drugs and biological substances Comprehensive [place]. Panel Fast 5 Months E78.9 - Disorder of lipoprotein metabolism, unspecified, H54.3 - Unqualified visual loss, both eyes, K21.9 - Gastro-esophageal reflux disease without esophagitis, Z00.01 - Encounter for general adult medical examination with abnormal findings, Z91.09 - Other allergy status, other than to drugs and biological substances Lipid Panel 5 Months E78.9 - Disorder of lipoprotein metabolism, unspecified, H54.3 - Unqualified visual loss, both eyes, K21.9 - Gastro-esophageal reflux disease without esophagitis, Z00.01 - Encounter for general adult medical examination with abnormal findings, Z91.09 - Other allergy status, other than to drugs and biological substances Vitamin D 25-OH (D2 and D3) 5 Months E78.9 - Disorder of lipoprotein metabolism, unspecified, H54.3 - Unqualified visual loss, both eyes, K21.9 - Gastro-esophageal reflux disease without esophagitis, Z00.01 - Encounter for general adult medical examination with abnormal findings, Z91.09 - Other allergy status, other than to drugs and biological substances Coding Level of Care Code Est Pt Prev Care 18-39y([id number]) Diagnoses Encounter for general adult medical examination with abnormal findings Z00.01 Lipid disorder E78.9 Chronic GERD K21.9 Environmental allergies Z91.09 Blind in both eyes H54.3 Memory deficit R41.3 History of traumatic brain injury Z87.820 Additional Codes SARAH-7 Assessment Billing - SARAH-7 Assessment Tool: SARAH-7 Assessment [id number] ([id number])
== END 2023-09-20 14:31 | disposition home or self-care (01) ==
PROVIDERS: PCP Internal Medicine; Visit Provider Internal Medicine
DX: Z00.00 Encounter for general adult medical examination without abnormal findings (principal); E78.9 Disorder of lipoprotein metabolism, unspecified; K21.9 Gastro-esophageal reflux disease without esophagitis; Z91.09 Other allergy status, other than to drugs and biological substances; H54.3 Unqualified visual loss, both eyes; R41.3 Other amnesia; Z87.820 Personal history of traumatic brain injury
CPT/HCPCS: 99395

== ENCOUNTER 2024-04-04 15:05 | Outpatient (AMB) | payer OTHER, SELFPAY ==
[2024-04-04 15:06] VITALS: BP 124/76; PULSE 66; O2SAT 97; BMI 26.6
--- NOTE | 2024-04-04 15:06 | A.OFFPC_ITS ---
Vital Signs 04/04/24 15:06 Height 5 ft 10 in Weight 185 lb 6 oz BMI 26.6 BP 124/76 Blood Pressure Location Rt brachial Position Sitting Pulse 66 Pulse Source Pulse Oximeter Pulse Oximetry (%) 97 Oxygen Delivery Method Room Air Intake Visit Reasons: 6 tue f/u Allergies amoxicillin [AMOXICILLIN] Allergy (Unknown, Verified 04/04/24 15:07) HIVES red dye [RED DYE] Allergy (Unknown, Verified 04/04/24 15:07) HIVES Dye RETIREMENT Red 2 (Amaranth) Allergy (Unknown, Uncoded 07/09/22 15:06) hives Dye RETIREMENT Red 3 (Erythrosine) Allergy (Unknown, Uncoded 07/09/22 15:06) hives Dye RETIREMENT Red 40 (Allura Red) Allergy (Unknown, Uncoded 07/09/22 15:06) hives Dye RETIREMENT Red 40 ([place] Red) Allergy (Unknown, Uncoded 07/09/22 15:06) hives Medication List - Last Reconciled 04/04/24 by Elizabeth Guzman MD cetirizine 10 mg PO DAILY PRN fluticasone propionate 50 mcg/actuation 1 spray intranasal BID memantine 5 mg PO DAILY 90 days omeprazole 20 mg PO DAILY rosuvastatin 20 mg PO DAILY 90 days Tobacco use date assessed: 09/20/23 Dental Screening Dental Screen Date: 09/20/23 HPI 6 tue/ HPI Details 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 Allergies are controlled with Flonase nasal spray and Zyrtec 10 mg daily. Follow-up 6 months [facility] Social History Housing: House Patient Tobacco Use Status: Never used Tobacco e-Cigarette/Vaping Use: Currently Using (vape) Current occupational status: disabled Cognitive needs: No Hearing needs: No Vision needs: No Questionnaire PHQ-9 Over the last 2 weeks, how often have you been bothered by any of the following problems? Depression Screening Interpretation: Negative Depression Screening Done: Yes Source: Developed by Drs. González Main, Evelyn Aburto, Kamran Gregory and colleagues, with an educational roberto from [employer]. Thrive Questionnaire Date Thrive assessed: 03/28/24 I am a: Patient What is your living situation today?: I have a steady place to live Within the past 12 months, did the food you bought not last and you didn't have the money to get more?: Never true Within the past 12 months, did you worry whether your food would run out before you got money to buy more?: Never true Do you have trouble paying for medicines?: No Do you have trouble getting transportation to medical appointments?: No Do you have trouble paying your heating and electricity bill?: No Do you have trouble taking care of your child, family member or friend?: No Do you have trouble with day-to-day activities such as bathing, preparing meals, shopping, managing finances, etc.?: Yes Are you currently unemployed and looking for a job?: No Are you interested in more education?: No Please select the resources that you would like help with: None Currently or been in a relationship where the following occur: No concerns reported THRIVE Score: 0 AUDIT C Alcohol Use Questionnaire (AUDIT-C) 1. How often do you have a drink containing alcohol?: 2-4 times a month 2. How many drinks containing alcohol do you have on a typical day when you are drinking?: 1 or 2 3. How often do you have six or more drinks on one occasion?: Never Total Score: 2 SARAH-7 AMB Questionnaire SARAH-7 Date SARAH - 7 assessed: 09/20/23 Feeling nervous, anxious, or on edge: 0 = Not at all Not being able to stop or control worryin = Not at all Worrying too much about different things: 1 = Several days Trouble relaxin = Not at all Being so restless that it is hard to sit still: 0 = Not at all Becoming easily annoyed or irritable: 0 = Not at all Feeling afraid as if something awful might happen: 0 = Not at all Total SARAH-7 score (0-4 normal; 5-9 mild; 10-14 moderate; 15-21 severe): 1 Source: Developed by Drs. González Main, Evelyn Aburto, Kamran Gregory and colleagues, with an educational roberto from [employer]. Review of Systems Const Denies chills, Denies fever(s) and Denies headache(s) ENT Denies headache(s), Denies nasal discharge, Denies nasal obstruction, Denies odynophagia and Denies sinus pain Card Denies chest pain at rest and Denies chest pain with activity Resp Denies cough and Denies hemoptysis GI Denies diarrhea, Denies odynophagia, Denies vomiting and Denies hematemesis Reports as per HPI Musc Denies abnormal gait Skin/Breast Reports as per HPI Neuro Denies Neuro-related abnormal movements, Denies Abnormal speech present, Denies abnormal gait, Denies headache(s) and Denies Sensory deficit (Neuro) Psych Denies mood swings and Denies paranoia Endo Reports as per HPI Rito/Lymph Reports as per HPI Aller/Immun Reports as per HPI Physical exam (Primary Care) Vital Signs: Last Vital Signs Pulse 66 04/04/24 15:06 BP 124/76 04/04/24 15:06 Pulse Ox 97 04/04/24 15:06 Oxygen Delivery Method Room Air 04/04/24 15:06 BMI result Body Mass Index 26.6 Tobacco/Smoking Status: Tobacco use Status Tobacco use date assessed 09/20/23 04/04/24 15:09 Patient Tobacco Use Status Never used Tobacco 04/04/24 15:09 e-Cigarette/Vaping Use Currently Using (vape) 04/04/24 15:09 Depression Screening Interpretation: Negative Thrive Assessment: Date of Thrive Assessment Date Thrive assessed 03/28/24 04/04/24 15:09 Currently or been in a relationship where the following occur: No concerns reported Const General: cooperative, comfortable and no acute distress Orientation/consciousness: patient oriented x3 HENMT Head: Yes normocephalic and Yes atraumatic Neck Neck: Yes supple and No lymphadenopathy Thyroid: Thyroid normal Lymphatic: no lymphadenopathy noted Resp Effort & Inspection: normal respiratory effort and able to speak in complete sentences Auscultation: clear to auscultation bilaterally Cardio Heart sounds: S1 normal heart sound present and S2 normal heart sound present GI Palpation (GI): Soft to palpation and nontender Auscultation: normal bowel sounds General: Yes no CVA tenderness Back/Spine/Pelvis Back: no CVA tenderness Skin General skin exam: elasticity normal and turgor normal Neuro General: patient oriented x3 and gait normal Speech: No Abnormal speech present Sensory Exam: No Sensory deficit (Neuro) Extrem General: Yes normal exam except as noted and No edema Office Procedures Flu Questionnaire Does the patient have a severe egg allergy?: No Does the patient have severe life threatening allergies?: No Does the patient have a fever or illness today?: No Has the patient ever had Guillain-Dennison Syndrome?: No Has the patient ever had any past reaction to a flu shot?: No Immunizations Fluarix Triv [id number] (PF) 45 mcg (15 mcg x 3)/0.5 mL IM syringe Performing Provider: Elizabeth Guzman MD Performing Location: [facility] Administered by: Demetrius Prado CMA on 04/04/24 15:35 Dose Route Admin Location Dispensed Lot Number Expiration Date [employer] Console Operator 0.5 mL IM Left Deltoid 0.5 mL [id number] 11/12/24 [id number] [employer] VIS Given Date VIS Provided VIS Publication Date 04/04/24 Single Vaccine 20 Eligibility Eligibility Date Funding Source Not [facility] Eligible 04/04/24 Private Coding Level of Care Code Est Pt Level 3 (62568) Complex EM visit Add On G2211 Diagnoses Lipid disorder E78.9 Memory deficit R41.3 Chronic GERD K21.9 Environmental allergies Z91.09 History of traumatic brain injury Z87.820 Assessment & Plan Assessment & Plan (1) Lipid disorder: Code(s): E78.9 - Disorder of lipoprotein metabolism, unspecified Category: Medical (2) Memory deficit: Code(s): R41.3 - Other amnesia Category: Medical (3) Chronic GERD: Code(s): K21.9 - Gastro-esophageal reflux disease without esophagitis Category: Medical (4) Environmental allergies: Code(s): Z91.09 - Other allergy status, other than to drugs and biological substances Category: Medical (5) History of traumatic brain injury: Code(s): Z87.820 - Personal history of traumatic brain injury Category: Medical Plan 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 Allergies are controlled with Flonase nasal spray and Zyrtec 10 mg daily. Follow-up 6 months Orders: Orders Influenza [id number] Immunization Today Z23 - Encounter for immunization
== END 2024-04-04 16:27 | disposition home or self-care (01) ==
LOC: HO.HMCC 15:05
PROVIDERS: PCP Internal Medicine; Visit Provider Internal Medicine
DX: E78.9 Disorder of lipoprotein metabolism, unspecified (principal); R41.3 Other amnesia; K21.9 Gastro-esophageal reflux disease without esophagitis; Z91.09 Other allergy status, other than to drugs and biological substances; Z87.820 Personal history of traumatic brain injury; Z23 Encounter for immunization

== ENCOUNTER → 2024-04-04 15:05 | Outpatient (BNVA) | payer OTHER, SELFPAY | PROVIDERS: PCP Internal Medicine; Visit Provider Internal Medicine | DX: Z23 Encounter for immunization (principal); E78.9 Disorder of lipoprotein metabolism, unspecified; R41.3 Other amnesia; K21.9 Gastro-esophageal reflux disease without esophagitis; Z91.09 Other allergy status, other than to drugs and biological substances; Z87.820 Personal history of traumatic brain injury | CPT/HCPCS: 90471; 90656; 99212 ==

== ENCOUNTER 2024-09-21 09:00 | Outpatient (REF) | payer OTHER, SELFPAY ==
[2024-09-21 10:01] LABS: MANUAL DIFF FLAG NO
[2024-09-21 10:06] LABS: Basophils Absolute Auto 0.1 X10*3/uL (0.0-0.2); Basophils Percent Auto 0.9 % (0-2); Eosinophils Absolute Auto 0.1 X10*3/uL (0.0-0.4); Eosinophils Percent Auto 1.1 % (0-4); Hematocrit 46.7 % (42.0-52.0); Hemoglobin 15.5 g/dl (14.0-18.0); Imm Gran Abs Auto 0.02 X10*3/uL (0.00-0.03); Imm Gran Pct Auto 0.3 % (0.0-0.4); Lymphocytes Absolute Auto 1.8 X10*3/uL (1.2-4.9); Lymphocytes Percent Auto 28.6 % (20-40); Mean Corpuscular HGB Conc 33.2 g/dl (31.0-36.0); Mean Corpuscular Hemoglobin 28.8 pg (27.0-33.0); Mean Corpuscular Volume 86.8 fL (80.0-98.0); Mean Platelet Volume 10.7 fL (9.4-12.4); Monocytes Absolute Auto 0.4 X10*3/uL (0.1-1.2); Monocytes Percent Auto 5.8 % (2-11); Neutrophils Absolute Auto 4.1 x10*3/uL (2.0-8.3); Neutrophils Percent Auto 63.3 % (45-73); Platelet Count 224 X10*3/uL (160-400); Red Blood Count 5.38 X10*6/uL (4.60-5.80); Red Cell Distribution Width 12.3 % (11.0-16.0); White Blood Count 6.4 X10*3/uL (4.8-10.8)
[2024-09-21 10:39] LABS: Alanine Aminotransferase 48 U/L (0-40); Albumin Level 4.6 g/dL (3.5-5.0); Alkaline Phosphatase 47 U/L (39-117); Anion Gap 9 (12-20); Aspartate Amino Transferase 26 U/L (5-37); Bilirubin Total 0.6 mg/dL (0.0-1.0); Blood Urea Nitrogen 12 mg/dL (9-16); Calcium 9.9 mg/dL (8.4-10.2); Carbon Dioxide 31 mmol/L (22-29); Chloride 103 mmol/L (96-108); Cholesterol 127 mg/dL (<200); Estimated Glomerular Filt Rate > 60; Glucose Fasting 86 mg/dL (60-99); HDL Cholesterol 44 mg/dL (>40); LDL Cholesterol Calculated 75 mg/dL (<100); Sodium 139 mmol/L (135-145); Total Protein 7.7 g/dL (6.5-8.0); Triglycerides 44 mg/dL (<150)
[2024-09-25 17:19] LABS: Vitamin D 25-OH, D2 <4 ng/mL; Vitamin D 25-OH, D3 19 ng/mL; Vitamin D 25-OH, Total 19 ng/mL (30-100)
== END 2024-09-21 09:01 | disposition home or self-care (01) ==
LOC: HO.HMGCLDS 09:00
PROVIDERS: PCP Internal Medicine; Visit Provider Internal Medicine
DX: Z00.01 Encounter for general adult medical examination with abnormal findings (principal); E78.9 Disorder of lipoprotein metabolism, unspecified; K21.9 Gastro-esophageal reflux disease without esophagitis; Z91.09 Other allergy status, other than to drugs and biological substances; H54.3 Unqualified visual loss, both eyes
CPT/HCPCS: 36415; 80053; 80061; 82306; 85025

== ENCOUNTER 2024-09-28 12:18 | Outpatient (AMB) | payer OTHER, SELFPAY ==
[2024-09-28 12:27] VITALS: BP 122/78; PULSE 76; O2SAT 96; BMI 24.7
--- NOTE | 2024-09-28 12:27 | MHC.PC.OV ---
Vital Signs 09/28/24 12:27 Height 5 ft 10 in Weight 172 lb 4 oz BMI 24.7 BP 122/78 Blood Pressure Location Rt brachial Position Sitting Pulse 76 Pulse Source Pulse Oximeter Pulse Oximetry (%) 96 Oxygen Delivery Method Room Air Intake Visit Reasons: annual PE overdue Allergies amoxicillin [AMOXICILLIN] Allergy (Unknown, Verified 09/28/24 12:29) HIVES red dye [RED DYE] Allergy (Unknown, Verified 09/28/24 12:29) HIVES Dye GROUP HOME Red 2 (Amaranth) Allergy (Unknown, Uncoded 09/28/24 12:29) hives Dye GROUP HOME Red 3 (Erythrosine) Allergy (Unknown, Uncoded 09/28/24 12:29) hives Dye GROUP HOME Red 40 (Allura Red) Allergy (Unknown, Uncoded 09/28/24 12:29) hives Dye GROUP HOME Red 40 ([place] Red) Allergy (Unknown, Uncoded 09/28/24 12:29) hives Medication List - Last Reconciled 09/28/24 by Elizabeth Guzman MD cetirizine 10 mg PO DAILY PRN fluticasone propionate 50 mcg/actuation 1 spray intranasal BID memantine 5 mg PO DAILY 90 days omeprazole 20 mg PO DAILY rosuvastatin 20 mg PO DAILY 90 days Tobacco use date assessed: 09/28/24 Dental Screening Dental Screen Date: 09/28/24 Did you have a dental visit in the last 12 months?: No Did you have a dental problem in the last 6 months where you did not have access to dental care?: No Was dental information given to patient?: Patient declined HPI annual PE overdue HPI Details History - The patient is a 34-year-old male with a 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 - Has a history of Allergic Rhinitis, currently managed with Cetirizine and Fluticasone, with stability reported. - Diagnosed with Gastroesophageal Reflux Disease (GERD), managed with Omeprazole, with no recent exacerbations noted. - Vitamin D deficiency remains persistent despite ongoing supplementation with Vitamin D3, with levels noted to be low. - No recent history of constipation, diarrhea, nausea, vomiting, chest pain, shortness of breath, or headaches. Problem List - Stable laboratory findings, except for marginally elevated liver enzymes - Allergic Rhinitis - Gastroesophageal Reflux Disease (GERD) - Vitamin D Deficiency - Hyperlipidemia - history of head trauma leading to blindness Patient Instructions - Continue taking daily Vitamin D supplementation as prescribed. - Maintain current allergy management regimen, including Cetirizine. - Continue current medications: Omeprazole for GERD and Rosuvastatin for cholesterol management. - Schedule a follow-up laboratory test in six months to monitor liver enzymes and other relevant markers. - Return for an annual check-up in twelve months. - Report any new or worsening symptoms promptly. Review of Systems - General: No fever no chills - Neurological: No headaches no dizziness - Ear nose throat: No sore throat no hearing difficulty no ear pain - Cardiovascular: No syncope, no chest pain, no palpitations - Gastrointestinal: No nausea vomiting or diarrhea - Endocrine: No polyuria polydipsia no heat intolerance - Genitourinary: No dysuria , no blood in urine Physical Exam General: No acute distress HEENT: Scars from previous head trauma noted Eyes: Blindness Neck: Supple Respiratory system: Able to talk in full sentences, no audible wheeze Cardiovascular: S1-S2 regular in rate and rhythm Gastrointestinal: No pain, no constipation, no diarrhea, no nausea, no vomiting Extremities: No new findings, no joint pain 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 1. Little interest or pleasure in doing things: not at all 2. Feeling down, depressed, or hopeless: not at all 3. Trouble falling or staying asleep, or sleeping too much: not at all 4. Feeling tired or having little energy: not at all 5. Poor appetite or overeating: not at all 6. Feeling bad about yourself - or that you are a failure or have let yourself or your family down: not at all 7. Trouble concentrating on things, such as reading the newspaper or watching television: not at all 8. Moving or speaking so slowly that other people could have noticed. Or the opposite - being so fidgety or restless that you have been moving around a lot more than usual: not at all 9. Thoughts that you would be better off or of hurting yourself in some way: not at all Total score: 0 Depression Screening Interpretation: Negative Depression Screening Done: Yes 50692 - PHQ-9 Billing: Yes Source: Developed by Drs. González Main, Evelyn Aburto, Kamran Gregory and colleagues, with an educational roberto from [employer]. Thrive Questionnaire Date Thrive assessed: 09/28/24 I am a: Patient What is your living situation today?: I have a steady place to live Within the past 12 months, did the food you bought not last and you didn't have the money to get more?: Never true Within the past 12 months, did you worry whether your food would run out before you got money to buy more?: Never true Do you have trouble paying for medicines?: No Do you have trouble getting transportation to medical appointments?: No Do you have trouble paying your heating and electricity bill?: No Do you have trouble taking care of your child, family member or friend?: No Do you have trouble with day-to-day activities such as bathing, preparing meals, shopping, managing finances, etc.?: No Are you currently unemployed and looking for a job?: No Are you interested in more education?: No Please select the resources that you would like help with: None Currently or been in a relationship where the following occur: No concerns reported THRIVE Score: 0 AUDIT C Alcohol Use Questionnaire (AUDIT-C) 1. How often do you have a drink containing alcohol?: 2-4 times a month 2. How many drinks containing alcohol do you have on a typical day when you are drinking?: 1 or 2 3. How often do you have six or more drinks on one occasion?: Never Total Score: 2 Score Reviewed/Action Taken: Yes SARAH-7 AMB Questionnaire SARAH-7 Date SARAH - 7 assessed: 09/28/24 Feeling nervous, anxious, or on edge: 0 = Not at all Not being able to stop or control worryin = Not at all Worrying too much about different things: 0 = Not at all Trouble relaxin = Not at all Being so restless that it is hard to sit still: 0 = Not at all Becoming easily annoyed or irritable: 0 = Not at all Feeling afraid as if something awful might happen: 0 = Not at all Total SARAH-7 score (0-4 normal; 5-9 mild; 10-14 moderate; 15-21 severe): 0 Source: Developed by Drs. González Main, Evelyn Aburto, Kamran Gregory and colleagues, with an educational roberto from [employer]. SARAH-7 Assessment Billing SARAH-7 Assessment Tool: SARAH-7 Assessment 19411 Physical exam (Primary Care) Vital Signs: Last Vital Signs Pulse 76 09/28/24 12:27 BP 122/78 09/28/24 12:27 Pulse Ox 96 09/28/24 12:27 Oxygen Delivery Method Room Air 09/28/24 12:27 BMI result Body Mass Index 24.7 Tobacco/Smoking Status: Tobacco use Status Tobacco use date assessed 09/28/24 09/28/24 12:30 Patient Tobacco Use Status Never used Tobacco 09/28/24 12:30 e-Cigarette/Vaping Use Currently Using (vape) 09/28/24 12:30 PHQ-9: PHQ-9 Score PHQ-9: Total score 0 09/28/24 12:50 Depression Screening Interpretation: Negative Thrive Assessment: Date of Thrive Assessment Date Thrive assessed 09/28/24 09/28/24 12:30 Currently or been in a relationship where the following occur: No concerns reported Coding Level of Care Code Est Pt Level 3 (29888) Est Pt Prev Care 18-39y(31038) Diagnoses Encounter for general adult medical examination with abnormal findings Z00.01 Lipid disorder E78.9 Chronic GERD K21.9 Memory deficit R41.3 Blindness of both eyes of unknown blindness category H54.3 Right eye visual impairment category: right - unknown blindness Left eye visual impairment category: left - unknown blindness History of traumatic brain injury Z87.820 Additional Codes SARAH-7 Assessment Billing - SARAH-7 Assessment Tool: SARAH-7 Assessment 09238 ([id number]) PHQ-9 - 32983 - PHQ-9 Billing: Yes ([id number]) Assessment & Plan Assessment & Plan (1) Encounter for general adult medical examination with abnormal findings: Code(s): Z00.01 - Encounter for general adult medical examination with abnormal findings Category: Medical (2) Lipid disorder: Code(s): E78.9 - Disorder of lipoprotein metabolism, unspecified Category: Medical (3) Chronic GERD: Code(s): K21.9 - Gastro-esophageal reflux disease without esophagitis Category: Medical (4) Memory deficit: Code(s): R41.3 - Other amnesia Category: Medical (5) Blind in both eyes: Code(s): H54.3 - Unqualified visual loss, both eyes Category: Medical Qualifiers: Right eye visual impairment category: right - unknown blindness Left eye visual impairment category: left - unknown blindness Qualified Code(s): H54.3 - Unqualified visual loss, both eyes (6) History of traumatic brain injury: Code(s): Z87.820 - Personal history of traumatic brain injury Category: Medical Plan History - The patient is a 34-year-old male with a 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 - Has a history of Allergic Rhinitis, currently managed with Cetirizine and Fluticasone, with stability reported. - Diagnosed with Gastroesophageal Reflux Disease (GERD), managed with Omeprazole, with no recent exacerbations noted. - Vitamin D deficiency remains persistent despite ongoing supplementation with Vitamin D3, with levels noted to be low. - No recent history of constipation, diarrhea, nausea, vomiting, chest pain, shortness of breath, or headaches. Problem List - Stable laboratory findings, except for marginally elevated liver enzymes - Allergic Rhinitis - Gastroesophageal Reflux Disease (GERD) - Vitamin D Deficiency - Hyperlipidemia - history of head trauma leading to blindness Patient Instructions - Continue taking daily Vitamin D supplementation as prescribed. - Maintain current allergy management regimen, including Cetirizine. - Continue current medications: Omeprazole for GERD and Rosuvastatin for cholesterol management. - Schedule a follow-up laboratory test in six months to monitor liver enzymes and other relevant markers. - Return for an annual check-up in twelve months. - Report any new or worsening symptoms promptly. Orders: Orders Comprehensive [place]. Panel Fast 6 Months E78.9 - Disorder of lipoprotein metabolism, unspecified Complete Blood Count Auto Diff 1 Year E78.9 - Disorder of lipoprotein metabolism, unspecified, H54.3 - Unqualified visual loss, both eyes, K21.9 - Gastro-esophageal reflux disease without esophagitis, R41.3 - Other amnesia, Z87.820 - Personal history of traumatic brain injury Comprehensive [place]. Panel Fast 1 Year E78.9 - Disorder of lipoprotein metabolism, unspecified, H54.3 - Unqualified visual loss, both eyes, K21.9 - Gastro-esophageal reflux disease without esophagitis, R41.3 - Other amnesia, Z87.820 - Personal history of traumatic brain injury Lipid Panel 1 Year E78.9 - Disorder of lipoprotein metabolism, unspecified, H54.3 - Unqualified visual loss, both eyes, K21.9 - Gastro-esophageal reflux disease without esophagitis, R41.3 - Other amnesia, Z87.820 - Personal history of traumatic brain injury Vitamin D 25-OH (D2 and D3) 1 Year E78.9 - Disorder of lipoprotein metabolism, unspecified, H54.3 - Unqualified visual loss, both eyes, K21.9 - Gastro-esophageal reflux disease without esophagitis, R41.3 - Other amnesia, Z87.820 - Personal history of traumatic brain injury Lipid Panel 6 Months E78.9 - Disorder of lipoprotein metabolism, unspecified
== END 2024-09-28 12:41 | disposition home or self-care (01) ==
PROVIDERS: PCP Internal Medicine; Visit Provider Internal Medicine
DX: Z00.00 Encounter for general adult medical examination without abnormal findings (principal); E78.9 Disorder of lipoprotein metabolism, unspecified; K21.9 Gastro-esophageal reflux disease without esophagitis; R41.3 Other amnesia; H54.3 Unqualified visual loss, both eyes; Z87.820 Personal history of traumatic brain injury

== ENCOUNTER → 2024-09-28 12:18 | Outpatient (BNVA) | payer OTHER, SELFPAY | PROVIDERS: PCP Internal Medicine; Visit Provider Internal Medicine | DX: Z00.01 Encounter for general adult medical examination with abnormal findings (principal); K21.9 Gastro-esophageal reflux disease without esophagitis; H54.7 Unspecified visual loss; E55.9 Vitamin D deficiency, unspecified; E78.9 Disorder of lipoprotein metabolism, unspecified; H54.3 Unqualified visual loss, both eyes; Z87.820 Personal history of traumatic brain injury | CPT/HCPCS: 96127; 99395 ==

== ENCOUNTER 2025-05-15 08:26 | Outpatient (REF) | payer OTHER, SELFPAY ==
--- OUTSIDE RECORDS SUMMARY | 2025-05-15 08:31 | XMS_ITS | Clinical Summary ---
Author Organization [facility] Address [address] [address] Phone Care Team Providers Care Table Games Floor Supervisor Name Role Phone Collin Felipe MD Primary Care Provider + Allergies Active Allergy Reactions Criticality Noted Date Comments Amoxicillin Unknown 08/29/2008 Acetaminophen Unknown 11/06/2008 tylenol gel caps rapid release Active Problems Problem Noted Date Diagnosed Date Injury of head 03/04/2010 Overview (07/06/2014): Injury of head Uncoded Arnold Chiari malformation 03/04/2010 Overview (07/06/2014): Arnold Chiari malformation Social History Tobacco Use Types Packs/Day Years Used Date Smoking Tobacco: Unknown Education Answer Date Recorded Are you interested in more education? Not on shun e 09/18/2022 Are you concerned about learning? Not on file 09/18/2022 No 09/18/2022 No 09/18/2022 Digital Access Answer Date Recorded No 10/10/2022 No 10/10/2022 Reliable internet access at home? Not on file 10/10/2022 Device with a working camera? Not on file Sex and Gender Information Value Date Recorded Sex Assigned at Not on file Legal Sex Male 5:32 PM EST Gender Identity Not on file Sexual Orientation Not on file Last Filed Vital Signs Vital Sign Reading Time Taken Comments Blood Pressure 130/80 12/04/2015 1:51 PM EDT Pulse 55 12/04/2015 1:51 PM EDT Temperature 36.5 C (97.7 F) 01/22/2010 11:20 AM EDT Respiratory Rate 18 12/04/2015 1:51 PM EDT Oxygen Saturation - - Inhaled Oxygen Concentration - - Weight 93 kg (205 lb) 03/04/2010 2:43 PM EDT Height 177.8 cm (5' 10 ) 03/04/2010 2:43 PM EDT Body Mass Index 29.41 03/04/2010 2:43 PM EDT Plan of Treatment Health Maintenance Due Date Last Done Comments DEPRESSION SCREENING 2003 SMOKING Hx and SMOKELESS TOB ACCO SCREENING 07/16/2004 HEPATITIS C SCREENING 07/16/2009 HIV ONE-TIME SCREENING (18-6 5 YEARS) 07/16/2009 Adult Td,Tdap Booster 03/15/2022 03/15/2012 INFLUENZA VACCINE (#1) 2024 04/11/2017 COVID-19 VACCINE (2 - 2024-2 6 season) 2025 08/18/2020 HEPATITIS A VACCINES Aged Out No long er eligible based on patient's age to complete this topic HIB VACCINES Aged Out No longer eligi ble based on patient's age to complete this topic MENINGOCOCCAL VACCINES (ACWY) Aged Out No longer eligible based on patient's age to complete this topic MENINGOCOCCAL VACCINES (B) Aged Out N o longer eligible based on patient's age to complete this topic PNEUMOCOCCAL VACCINES (0-49 years) Aged Out No longer eligible based on patient's age to complete this topic Medical Devices Not on file Insurance [facility] [address] [place] [address] [facility] Care Teams Table Games Floor Supervisor Relationship Specialty Start Date End Date Collin Felipe MD PCP - General Internal Medicine 09/18/15 Additional Source Comments The information contained in this document represents components of the legal health record. It is not the complete legal health record.[facility]
[2025-05-15 10:44] LABS: Alanine Aminotransferase 29 U/L (0-40); Albumin Level 4.9 g/dL (3.5-5.0); Alkaline Phosphatase 42 U/L (39-117); Anion Gap 10 (12-20); Aspartate Amino Transferase 24 U/L (5-37); Blood Urea Nitrogen 16 mg/dL (9-16); Calcium 9.9 mg/dL (8.4-10.2); Carbon Dioxide 32 mmol/L (22-29); Chloride 105 mmol/L (96-108); Cholesterol 159 mg/dL (<200); Estimated Glomerular Filt Rate > 60; HDL Cholesterol 61 mg/dL (>40); Potassium 4.6 mmol/L (3.3-5.1); Sodium 142 mmol/L (135-145); Total Protein 7.6 g/dL (6.5-8.0); Triglycerides 70 mg/dL (<150)
== END 2025-05-15 08:27 | disposition home or self-care (01) ==
LOC: HO.HMGCLDS 08:26
PROVIDERS: PCP Internal Medicine; Visit Provider Internal Medicine
DX: E78.9 Disorder of lipoprotein metabolism, unspecified (principal)
CPT/HCPCS: 36415; 80053; 80061